=== PATIENT | male | born 1975 ===

== ENCOUNTER → 2017-02-18 | Outpatient (CLI) | payer BC ==
--- NOTE | 2017-02-18 13:01 | DIAGNOSTIC IMAGING REPORT ---
CT HEAD WITHOUT CONTRAST (CT) CLINICAL HISTORY: Persistent headache and blurred vision COMPARISON STUDY: No previous studies for comparison. TECHNIQUE: Axial CT of the brain is performed from the vertex to the skull base. IV contrast was not administered for this examination. CT DOSE: FINDINGS: No intra or extra-axial mass lesions are visualized. There is no CT evidence of acute cortical infarction. There is no evidence of midline shift. There is no acute hemorrhage. No calvarial fractures are visualized. There is no evidence of pathologic ventricular dilatation. There is no evidence of acute sinusitis IMPRESSION: Normal noncontrast head CT. Electronically signed by: Nirmal Heart M.D. 02/18/2017 12:59 PM Dictated Date/Time: 02/18/2017 12:58 PM
== END | disposition home or self-care (01) ==
LOC: C.CTS 12:39
PROVIDERS: ATTEND Family Medicine
DX: R51 Headache (principal)

== ENCOUNTER → 2017-09-19 | Outpatient (CLI) | payer BC ==
--- NOTE | 2017-09-19 15:02 | DIAGNOSTIC IMAGING REPORT ---
SOFT TISS HEAD/NECK-THYROID CLINICAL HISTORY: 42 years-old Male presenting with LUMP ON RT SIDE OF NECK,LT SHOULDER PAIN, lump in the superior mid neck for 4 weeks and posterior lateral neck 4 years. TECHNIQUE: Real-time grayscale and color Doppler ultrasound imaging of the neck was performed. COMPARISON: 04/18/2012. FINDINGS: At the site of clinical interest in the superior neck to the right of midline, a 1.9 x 0.7 x 1.2 cm benign-appearing lymph node is noted. Medial to this a second benign-appearing lymph node noted measuring 1.3 x 1.1 x 1.2 cm. At the second site of clinical interest in the posterior lateral right neck, ill-defined isoechoic 2.2 x 1.2 x 2.5 cm mass noted. This has the same echogenicity as surrounding subcutaneous fat but appears to exert mass effect on the underlying musculature. IMPRESSION: 1. At the site of clinical interest in the superior neck to the right of midline, findings consistent with benign-appearing lymph nodes. 2. At the second site of clinical interest in the posterior lateral right neck, findings suggest lipoma. Electronically signed by: Alan Brar M.D. 09/19/2017 3:00 PM Dictated Date/Time: 09/19/2017 2:57 PM
--- NOTE | 2017-09-19 16:03 | DIAGNOSTIC IMAGING REPORT ---
MRI OF THE LEFT SHOULDER CLINICAL HISTORY: Left shoulder pain. COMPARISON STUDY: No priors. TECHNIQUE: MRI of the left shoulder was performed utilizing various T1 and T2 weighted sequences in the axial, sagittal, coronal planes. IV contrast was not administered for this examination. Note that interpretation is suboptimal without plain film correlate. FINDINGS: Rotator cuff: The supraspinatus and intraspinous tendons are preserved. The teres minor and subscapularis tendons are intact. There is no subacromial or subdeltoid bursal fluid. The acromioclavicular joint is unremarkable. Biceps tendon: The long head of the biceps tendon is normal in signal intensity and located within the bicipital groove. The anchor is maintained. Labrum: Question a small tear of the glenoid labrum. Shoulder joint: There is no joint effusion. The articular cartilage over the glenoid is well maintained. Minimal arthritic changes present in the greater tuberosity of the humeral head. There is no MRI evidence of fracture. Musculature and soft tissues: The musculature of the shoulder is normal in bulk and signal intensity. No atrophy is seen. IMPRESSION: 1. The rotator cuff is intact. 2. The long head of the biceps tendon is preserved. 3. Question a SLAP tear of the labrum Electronically signed by: Homero Simpson M.D. 09/19/2017 4:02 PM Dictated Date/Time: 09/19/2017 3:55 PM
== END | disposition home or self-care (01) ==
LOC: C.ULTRBC 14:10
PROVIDERS: ATTEND Family Medicine
DX: R22.1 Localized swelling, mass and lump, neck (principal); M25.512 Pain in left shoulder

== ENCOUNTER → 2017-12-19 | Day surgery (SDC) | payer BC ==
[2017-11-26 14:16] VITALS: Ht 175.3 cm; Wt 120.5 kg
[~2017-12-19] VITALS: Ht 175.3 cm; Wt 120.5 kg
[~2017-12-19] MED LIST: AMOX875T PO; ATROPINE SULFATE 0.1 MG/ML 5ML SYR IV PRN; BETAMETH SOD PHOS/ACETATE IA 6 MG/ML ONE; BUPIVACAINE 0.25% 30 ML VIAL ONE; BUPIVACAINE 0.5 % 5 MG/1 ML MPF 30ML VIAL ONE; BUPIVACAINE 0.5 % 5 MG/1 ML PF 10ML VIAL ONE; CEFAZOLIN 3000MG IV PUSH 22.5 ML IV SCH; CYM/30 PO; DEXAMETHASONE SOD INJ 4 MG/ML VIAL ONE; ESOM20CA PO; EpHEDrine SULFATE INJ 50 MG/ML AMP IV PRN; EpINEphrine INJ 1MG/ML AMP 1 MG/ML AMP ONE; FENTANYL CITRATE INJ 50 MCG/1 ML 2 ML VIAL IV PRN; FENTANYL CITRATE INJ 50 MCG/1 ML 2 ML VIAL ONE; FLUMAZENIL 0.1 MG/1 ML 10 ML VIAL IV ONE; HydrALAZINE HCL 20 MG/ML VIAL ONE; KETO10TA PO; KETOROLAC TROMETHAMINE 30 MG/ML VIAL IV. PRN; LABETALOL HCL IV 5 MG/ML 20ML IV ONE; LACTATED RINGER'S 1000ML 1,000 ML IV SCH; LIDOCAINE HCL 2% 2 ML VIAL (20MG/ML) ONE; MIDAZOLAM HCL 1 MG/ML 2ML VIAL ONE; MONT1TAB3 PO; NXM/40 PO; ONDANSETRON INJ 2 MG/ML 2 ML VIAL IV PRN; ONDANSETRON INJ 2 MG/ML 2 ML VIAL ONE; OXYC-57 PO; OXYCODONE/ACETAMINOPHEN 5-325 TAB ONE; OXYCODONE/ACETAMINOPHEN 5-325 TAB PO PRN; PROMETHAZINE HCL INJ 6.25 MG in SODIUM CHLORIDE 0.9% 50ML 50 ML IV PRN; PROPOFOL IV EMULSION 10 MG/ML 20 ML VIAL IV ONE; SODIUM CHLORIDE 0.9% 1000ML 1,000 ML IV SCH
--- NOTE | 2017-12-19 08:10 | History & Physical Bridge - SC ---
H&P Re-Evaluation Bridge Note: I have examined the patient, reviewed the History & Physical and in the interval since the performance of the History & Physical I have noted the following changes of clinical significance: Added Left Lateral Epicondyle Injection to the consent
--- NOTE | 2017-12-19 09:27 | [facility] Post Operative Brief Note ---
Immediate Operative Summary Operative Date Dec 19, 2017. Pre-Operative Diagnosis Impingement sydrome left shoulder Post-Operative Diagnosis same Procedure(s) Performed Left Shoulder Arthroscopy With Subacromial Decompression Surgeon Dr. Pozo [employer] Surgeon(s) Avi Odonnell PA-C Estimated Blood Loss 5cc Findings Consistent with Post-Op Diagnosis Specimens none Anesthesia Type MAC Regional Complication(s) none Disposition Disposition: Recovery Room / PACU
--- NOTE | 2017-12-19 09:34 | Discharge Instructions-SurgCtr ---
Discharge Instructions Date of Service Dec 19, 2017. Visit Reason for Visit: Impingement Syndrome Of Shoulder Region Discharge Discharge Diagnosis / Problem: SAME ABOVE Discharge Goals Goal(s): Decrease discomfort, Improve function Activity Recommendations Activity Limitations: as noted below Lifting Limitations: gradually increase as tolerated Exercise/Sports Limitations: gradually increase as tolerated Shower/Bathe: tomorrow Anesthesia . Post Anesthesia Instructions: If you have had General Anesthesia or IV Sedation: * Do not drive today. * Resume driving when surgeon permits. * Do not make important decisions or sign legal documents today. * Call surgeon for: 1. Temperature elevations greater than 101 degrees F. 2. Uncontrollable pain. 3. Excessive bleeding. 4. Persistent nausea and vomiting. 5. Medication intolerance (nausea, vomiting or rash). * For nausea and vomiting use only clear liquids such as: tea, soda, bouillon until nausea subsides, then gradually increase diet as tolerated. * If you have any concerns or questions, call your surgeon's office. If physician is unavailable and it is an emergency, call 911 or go to the nearest emergency room. . Instructions / Follow-Up Instructions / Follow-Up MEDICATIONS: * Resume previous medications unless instructed otherwise by your surgeon. * Always take pain medication on a full stomach or with food to avoid upset stomach. * Do not drink alcohol or drive while taking narcotics. * Ibuprofen or Tylenol may be taken if narcotic not needed. SPECIAL CARE INSTRUCTIONS: __ None _X_ Keep extremity elevated and iced x 48 hours; apply ice 20-30 minutes 8-10 times/day. May remove at night. _X_ Sling (*WEAR NEEDED FOR COMFORT) __24 hrs/day __ Remove at night __ Shoulder Immobilizer __ 24 hrs/day __ Remove at night _X_ Dressing __ Maintain until seen in office, may shower with plastic over site _X_ Remove dressings in 24-48 hours and then may shower _X_ Cover incisions with band-aids after showering __ Do not remove steri-strips Call physician if chills or temperature rises above 102 degrees or pain unrelieved by prescribed pain medications at . . Diet Recommendations Home Diet: no limitations Fluid Restriction: None Procedures Procedures Performed: Left Shoulder Arthroscopy, Acromioplasty, Debridement, and Distal Clavicle Resection. Injection Left Lateral Epicondyle Pending Studies Studies pending at discharge: no Work Instructions Return To Work: after follow-up Medical Emergencies . Who to Call and When: Medical Emergencies: If at any time you feel your situation is an emergency, please call 911 immediately. . Non-Emergent Contact Non-Emergency issues call your: Primary Care Provider Call Non-Emergent contact if: you have a fever, temperature is above 101.5 . . "Provider Documentation" section prepared by Torin Odonnell. .
[2017-12-19 09:35] VITALS: TEMP 36.2
--- NOTE | 2017-12-19 10:18 | Anesthesia Progress Nt - [facility] ---
Anesthesia Post Op Note Date & Time Dec 19, 2017 at 10:17 Vital Signs Pain Intensity: 4.0 Vital Signs Past 12 Hours Date Time Temp Pulse Resp B/P (MAP) Pulse Ox O2 Delivery O2 Flow Rate FiO2 12/19/17 09:35 36.2 66 16 99/61 (74) 99 Room Air 12/19/17 08:31 148/98 12/19/17 08:29 69 12/19/17 08:29 67 97 12/19/17 08:26 158/113 12/19/17 08:24 66 12/19/17 08:24 67 152/98 96 12/19/17 07:35 36.5 69 18 157/107 (124) 95 Room Air Notes Mental Status: alert / awake / arousable, participated in evaluation Pt Amnestic to Procedure: Yes Nausea / Vomiting: adequately controlled Pain: adequately controlled Airway Patency, RR, SpO2: stable & adequate BP & HR: stable & adequate Hydration State: stable & adequate Anesthetic Complications: no major complications apparent Block working well in pacu
[2017-12-19 11:04] VITALS: BP 104/62; PULSE 63; O2SAT 95
--- NOTE | 2017-12-19 14:16 | OPERATIVE REPORT ---
DATE OF OPERATION: 12/19/2017 PREOPERATIVE DIAGNOSIS: Severe external impingement of the left shoulder. POSTOPERATIVE DIAGNOSIS: Same. PROCEDURE: Left shoulder diagnostic arthroscopy with limited debridement, acromioplasty, and distal clavicle resection to include co-planing the undersurface of the clavicle. SURGEON: Dr. Heriberto Pozo. HOOP COILER: Avi Odonnell PA-C, whose assistance was necessary for positioning the arm and help with instrumentation. ANESTHESIA: Sedation with a left interscalene nerve block. COMPLICATIONS: None. CONDITION: Stable to PACU. INDICATIONS: Baldo is a pleasant 42-year-old male who has been having a 6-month history of left shoulder pain. He denies any trauma. MRI and clinical examination were diagnostic for severe external impingement. After failing conservative treatment, he elected to undergo arthroscopy. DESCRIPTION OF PROCEDURE: On 12/19/2017, he arrived at [facility] for the above procedure. He was seen in the preoperative holding and the operative extremity was identified and signed. He was given a preoperative antibiotic and a left interscalene nerve block. He was taken back to the operating room, laid on the table in supine position and put under basic sedation. The left shoulder was prepped and draped in sterile fashion. Time-out was done and the patient's operative extremity was properly identified. A scope was introduced into the posterior portal. Diagnostic arthroscopy showed no cartilage damage to the humeral head or the glenoid. There was some fraying in the superior and anterior labrum. Some of the frayed labrum was incarcerated in the joint. The biceps tendon was intact and went through a normal size biceps karan mechanism. The supraspinatus, infraspinatus, teres minor and subscapularis were all checked and intact. An anterior portal was made. A shaver was used to do a limited debridement of the intraarticular structures and to bring the labrum back to stable margins. The scope was then put into the subacromial space. A lateral portal was made. A shaver was used to do a complete subacromial and subdeltoid bursectomy. An ablator was used to tease the coracoacromial ligament off the undersurface of the acromion and a 5-0 celsa was used to complete an acromioplasty of a Bigliani type 3 acromion. A shaver was used to remove any excess debris and the bursal side of the rotator cuff was examined extensively without evidence of tear. Attention was turned to the distal clavicle. There was large inferior osteophytes off the distal clavicle that were impinging upon the supraspinatus outlet. A 5-0 celsa was used to co-plane the undersurface of the clavicle. This opened up the supraspinatus outlet. Multiple pictures were taken. Arthroscopic instruments were removed from the shoulder. Portal sites were closed with 3-0 nylon. He was then placed in a soft dressing and a regular arm sling. He was then extubated, transferred to a [facility] and taken to the postanesthesia care in stable condition. He tolerated the procedure well. I attest to the content of the Intraoperative Record and any orders documented therein. Any exception s are noted below.
--- NOTE | 2017-12-19 14:37 | OPERATIVE REPORT ---
DATE OF OPERATION: 12/19/2017 ADDENDUM He also had a lateral epicondyle injection at the end of this procedure. We discussed this before the case and updated the consent. After the procedure was done, his lateral epicondyle was injected with 1 mL of Marcaine and 1 mL of Celestone. A Band-Aid was placed. I attest to the content of the Intraoperative Record and any orders documented therein. Any exception s are noted below.
== END | disposition home or self-care (01) ==
LOC: X.SURG 07:21
PROVIDERS: ATTEND Orthopaedic Surgery
DX: M75.42 Impingement syndrome of left shoulder (principal); F32.9 Major depressive disorder, single episode, unspecified; E66.9 Obesity, unspecified; Z87.891 Personal history of nicotine dependence; Z79.899 Other long term (current) drug therapy; Z98.818 Other dental procedure status; Z82.49 Family history of ischemic heart disease and other diseases of the circulatory system; Z82.3 Family history of stroke; Z83.3 Family history of diabetes mellitus

== ENCOUNTER 2017-12-20 12:36 | Emergency (ER) | payer BC ==
[~2017-12-20] VITALS: Ht 175.3 cm; Wt 132.1 kg
[~2017-12-20 12:36] MED LIST changes: -AMOX875T PO; -ATROPINE SULFATE 0.1 MG/ML 5ML SYR IV PRN; -BETAMETH SOD PHOS/ACETATE IA 6 MG/ML ONE; -BUPIVACAINE 0.25% 30 ML VIAL ONE; -BUPIVACAINE 0.5 % 5 MG/1 ML MPF 30ML VIAL ONE; -BUPIVACAINE 0.5 % 5 MG/1 ML PF 10ML VIAL ONE; -CEFAZOLIN 3000MG IV PUSH 22.5 ML IV SCH; -DEXAMETHASONE SOD INJ 4 MG/ML VIAL ONE; -ESOM20CA PO; -EpHEDrine SULFATE INJ 50 MG/ML AMP IV PRN; -EpINEphrine INJ 1MG/ML AMP 1 MG/ML AMP ONE; -FENTANYL CITRATE INJ 50 MCG/1 ML 2 ML VIAL IV PRN; -FENTANYL CITRATE INJ 50 MCG/1 ML 2 ML VIAL ONE; -FLUMAZENIL 0.1 MG/1 ML 10 ML VIAL IV ONE; -HydrALAZINE HCL 20 MG/ML VIAL ONE; -KETOROLAC TROMETHAMINE 30 MG/ML VIAL IV. PRN; -LABETALOL HCL IV 5 MG/ML 20ML IV ONE; -LACTATED RINGER'S 1000ML 1,000 ML IV SCH; -LIDOCAINE HCL 2% 2 ML VIAL (20MG/ML) ONE; -MIDAZOLAM HCL 1 MG/ML 2ML VIAL ONE; -ONDANSETRON INJ 2 MG/ML 2 ML VIAL IV PRN; -ONDANSETRON INJ 2 MG/ML 2 ML VIAL ONE; -OXYCODONE/ACETAMINOPHEN 5-325 TAB ONE; -OXYCODONE/ACETAMINOPHEN 5-325 TAB PO PRN; -PROMETHAZINE HCL INJ 6.25 MG in SODIUM CHLORIDE 0.9% 50ML 50 ML IV PRN; -PROPOFOL IV EMULSION 10 MG/ML 20 ML VIAL IV ONE; -SODIUM CHLORIDE 0.9% 1000ML 1,000 ML IV SCH
[2017-12-20 12:39] VITALS: TEMP 36.4; Ht 175.3 cm; Wt 132.1 kg
[2017-12-20 12:56] VITALS: O2SAT 96
--- NOTE | 2017-12-20 13:10 | EMERGENCY ROOM VISIT NOTE ---
History First contact with patient: 12:53 Chief Complaint: SHORTNESS OF BREATH Stated Complaint: SOB, FOLLOWING SHOULDER SURG Nursing Triage Summary: pt arrives reporting left shoulder surgery yesterday by MD Pozo reports late in the night after surgery SOB and dyspnea pt arrives appearing in discomfort shoulder is in sling, taken out and repositioned pt reports no current ROM activity pt reports pain with deep inspiration History of Present Illness The patient is a 42 year old male who presents to the Emergency Room with complaints of shortness of breath since last night. The patient underwent left shoulder surgery yesterday with Dr. Pozo. He did not undergo general anesthesia. A nerve block was performed. The patient did not notice his breathing was difficult until he went home. He denies any cough. No chest pain or pressure. He denies any history of cardiac disease. He has not been using an incentive spirometer. Review of Systems 10 system review performed and negative unless noted in HPI or below Past Medical/Surgical History Otherwise healthy Social History Smoking Status: Former Smoker Marital Status: Current/Historical Medications Scheduled Amoxicillin & Pot Clavulanate (Augmentin 875-125 mg), 1 TAB PO BID Duloxetine HCl (Cymbalta), 1 CAP PO DAILY Esomeprazole Magnesium (Nexium), 20 MG PO DAILY Montelukast Sodium (Singulair), 10 MG PO HS Scheduled PRN Ketorolac Tromethamine (Toradol), 10 MG PO Q8 PRN for Pain Oxycodone/Acetaminophen 5MG/325MG (Percocet 5MG/325MG), 1-2 TABLETS PO Q6 PRN for Pain Physical Exam Vital Signs Date Time Temp Pulse Resp B/P (MAP) Pulse Ox O2 Delivery O2 Flow Rate FiO2 12/20/17 15:59 67 20 141/92 94 Room Air 12/20/17 15:19 57 18 136/90 95 Room Air 12/20/17 13:50 84 16 166/102 94 Room Air 12/20/17 13:07 66 12/20/17 12:56 96 Room Air 12/20/17 12:49 98 Room Air 12/20/17 12:39 36.4 69 18 164/106 95 Room Air Physical Exam VITALS: Vitals are noted on the nurse's note and reviewed by myself. Vital signs stable. GENERAL: 42-year-old male, in no acute distress, nondiaphoretic, well-developed well-nourished. SKIN: Incisions in the left shoulder are intact. No surrounding erythema. No bruising. HEAD: Normocephalic atraumatic. NECK: Supple without nuchal rigidity. No lymphadenopathy. Cervical spine is nontender. No JVD. HEART: Regular rate and rhythm without murmurs gallops or rubs. LUNGS: Clear to auscultation bilaterally without wheezes, rales or rhonchi. No accessory muscle use. ABDOMEN: Positive bowel sounds x 4.Soft, nontender, without organomegaly. No guarding or rebound tenderness. MUSCULOSKELETAL: No muscle atrophy, erythema, or edema noted. Strength 5/5 throughout. NEURO: Patient was alert and oriented to person place and time. Normal sensation to touch. No focal neurological deficits. Medical Decision & Procedures ER Provider Diagnostic Interpretation: CTA chest IMPRESSION: 1. No evidence for pulmonary embolus. 2. Parenchymal infiltrate left lung base with associated areas of round atelectasis and peripheral subsegmental consolidation. The above report was generated using voice recognition software. It may contain grammatical, syntax or spelling errors. Electronically signed by: Judd Ricketts M.D. 12/20/2017 3:15 PM Dictated Date/Time: 12/20/2017 3:10 PM The status of this report is Signed. Draft = Not yet reviewed or approved by Radiologist. Signed = Reviewed and approved by Radiologist. <AttendingPhy></AttendingPhy> <FamilyPhy>Heriberto Mckinnon, DO</FamilyPhy> < PrimaryPhy>Heriberto Mckinnon, DO</PrimaryPhy> <UnitNumber>[id number]</ UnitNumber> <VisitNumber>[id number]</VisitNumber> <PatientName>NY LOPEZ </PatientName> <DateOfBirth>1975</DateOfBirth> <Location[facility]</Location> <ServiceDate>12/20/17</ServiceDate> <MNE>ESINDI</MNE> <OrderingPhy>Arianne Pinedo PA-C</OrderingPhy> <OrderingPhyMNE>f rep ord dr gudino</OrderingPhyMNE> < DictatingPhyMNE>f rep dict dr mne</DictatingPhyMNE> <CCListMNE>f rep ct mne</ CCListMNE> <AdmittingPhyMNE>f pt admit dr gudino</AdmittingPhyMNE Laboratory Results 12/20/17 12:50 Red Blood Count 4.72, Mean Corpuscular Volume 91.3, Mean Corpuscular Hemoglobin 31.6, Mean Corpuscular Hemoglobin Concent 34.6, Mean Platelet Volume 11.3, Neutrophils (%) (Auto) 75.7, Lymphocytes (%) (Auto) 14.2, Monocytes (%) (Auto) 9.4, Eosinophils (%) (Auto) 0.0, Basophils (%) (Auto) 0.1, Neutrophils # (Auto) 14.23, Lymphocytes # (Auto) 2.67, Monocytes # (Auto) 1.76, Eosinophils # (Auto) 0.00, Basophils # (Auto) 0.01 12/20/17 12:50 Test 12/20/17 12:50 White Blood Count 18.78 K/uL (4.8-10.8) Red Blood Count 4.72 M/uL (4.7-6.1) Hemoglobin 14.9 g/dL (14.0-18.0) Hematocrit 43.1 % (42-52) Mean Corpuscular Volume 91.3 fL (80-100) Mean Corpuscular Hemoglobin 31.6 pg (25-34) Mean Corpuscular Hemoglobin Concent 34.6 g/dl (32-36) Platelet Count 249 K/uL (130-400) Mean Platelet Volume 11.3 fL (7.4-10.4) Neutrophils (%) (Auto) 75.7 % Lymphocytes (%) (Auto) 14.2 % Monocytes (%) (Auto) 9.4 % Eosinophils (%) (Auto) 0.0 % Basophils (%) (Auto) 0.1 % Neutrophils # (Auto) 14.23 K/uL (1.4-6.5) Lymphocytes # (Auto) 2.67 K/uL (1.2-3.4) Monocytes # (Auto) 1.76 K/uL (0.11-0.59) Eosinophils # (Auto) 0.00 K/uL (0-0.5) Basophils # (Auto) 0.01 K/uL (0-0.2) RDW Standard Deviation 44.3 fL (36.4-46.3) RDW Coefficient of Variation 13.3 % (11.5-14.5) Immature Granulocyte % (Auto) 0.6 % Immature Granulocyte # (Auto) 0.11 K/uL (0.00-0.02) Anion Gap 9.0 mmol/L (3-11) Est Creatinine Clear Calc Drug Dose 163.8 ml/min Estimated GFR () 128.6 Estimated GFR (Non- 111.0 BUN/Creatinine Ratio 15.0 (10-20) Calcium Level 9.4 mg/dl (8.5-10.1) Troponin I 0.020 ng/ml (0-0.045) Medications Administered Medications (Trade) Dose Ordered Sig/Albin Route Start Time Stop Time Status Last Admin Dose Admin Diphenhydramine HCl (Benadryl Inj) 50 mg STK-MED ONCE .ROUTE 12/20/17 13:43 12/20/17 13:44 DC 12/20/17 13:47 50 MG Ranitidine HCl (zANTac IV) 50 mg NOW STAT IV 12/20/17 13:50 12/20/17 13:52 DC 12/20/17 13:50 50 MG Dexamethasone Sodium Phosphate (Decadron Inj) 10 mg NOW STAT IV 12/20/17 14:05 12/20/17 14:06 DC 12/20/17 14:12 10 MG Amoxicillin/ Clavulanate Potassium (Augmentin Tab) 875 mg NOW ONCE PO 12/20/17 15:45 12/20/17 15:46 DC 12/20/17 16:20 875 MG Albuterol (Ventolin Hfa Inhaler) 2 puffs NOW ONCE INH 12/20/17 15:45 12/20/17 15:46 DC 12/20/17 16:20 2 PUFFS ED Course Patient was seen and examined Vital signs including blood pressure were reviewed medications list was verified with patient Labs were obtained, and a saline lock was established I was notified by the RN that the patient is complaining of itching. The patient's also noted some redness of his ears and neck. The patient was reevaluated. Mild erythema noted of the ears and neck bilaterally. The patient was given 1 dose of Benadryl 50 mg IV, Decadron 10 mg IV and ranitidine 50 mg IV. He was observed. His symptoms greatly improved. Imaging was performed and reviewed. I reassessed the patient. He was resting comfortably. He denied any itching, shortness of breath or difficulty swallowing. We thoroughly reviewed his results. He voiced understanding, and was comfortable being discharged home. The patient was given 1 dose of Augmentin. He was also given an albuterol inhaler and incentive spirometer. I reviewed discharge instructions the patient. They voiced understanding and had no further questions. Medical Decision Differential diagnosis: Atelectasis, pneumonia, pulmonary embolus, allergic reaction, angioedema This patient is a 42-year-old male presents to the emergency department with a main complaint of shortness of breath postop day #1 from shoulder surgery. On exam, there is no significant wheezing. Airway was patent. His labs revealed leukocytosis at 18,000. I was also concerned about a pulmonary embolus given his recent surgery. A CTA was performed. This shows an infiltrate at the left base. Given his recent surgery/sedation, I opted to cover the patient for aspiration pneumonia. He was started on a course of Augmentin. He was also given an albuterol inhaler. He is not hypoxic. Regarding a possible allergic reaction, the patient had some erythema of his ears. I do not appreciate a significant rash. He had no stridor or wheezing on exam. The patient was treated with Benadryl,'s Decadron and ranitidine. He had no further symptoms of an allergic reaction. I believe he is stable to be discharged home with close follow-up. The patient and the patient's family are comfortable with this plan. They'll follow up with the memory care physician on Saturday. They agree to return to the emergency department with any new or concerning symptoms over the weekend This chart was completed in part utilizing [employer] Speech Voice Recognition software. Attempts were made to minimize the grammatical errors, random word insertions, pronoun errors and incomplete sentences. Any formal questions or concerns about the content, text or information contained within the body of this dictation should be directly addressed to the provider for clarification. Medication Reconcilliation Current Medication List: was personally reviewed by me Blood Pressure Screening Patient's blood pressure: Elevated blood pressure Impression Primary Impression: Pneumonia Departure Information Dispostion Home / Self-Care Condition GOOD Prescriptions Amoxicillin & Pot Clavulanate (Augmentin 875-125 mg) 1 Tab Tab 1 TAB PO BID for 10 Days, #20 TAB Prov: Arianne Pinedo PA-C 12/20/17 Referrals Heriberto Mckinnon DO (PCP) Patient Instructions ED Pneumonia Adult, My [facility] Additional Instructions You have been evaluated in the emergency department for shortness of breath after surgery. A CAT scan shows pneumonia on the left side. Please do incentive spirometer 6-8 times every hour over the next 5 days while awake Please take the entire course of antibiotics. Please either eat yogurt daily or take a probiotic with this medication. Please use albuterol inhaler 2 puffs every 4 hours as needed for difficulty breathing Please follow-up as soon as possible with your primary care physician for a recheck Watch for further signs of allergic reaction such as difficulty swallowing, swelling of the face, lips, tongue, worsening breathing or rash Please do not hesitate to return to the emergency department with any new, worsening or concerning symptoms It was a pleasure participating in your care today
[2017-12-20] MEDS ORDERED: CYM/30 PO (13:34)
[2017-12-20] MEDS ORDERED: ESOM20CA PO (13:34)
[2017-12-20] MEDS ORDERED: DiphenhydrAMINE HCL 50 MG/ML VIAL ONE (13:43)
[2017-12-20] MEDS ORDERED: METHYLPREDNISOLONE 125 MG VIAL IV STA (13:50)
[2017-12-20] MEDS ORDERED: RANITIDINE HCL 50 MG/100 ML D5W IV STA (13:50)
[2017-12-20 14:00] LABS: BASO % 0.1 %; BASO ABS # 0.01 K/uL (0-0.2); HEMATOCRIT 43.1 % (42-52); HEMOGLOBIN 14.9 g/dL (14.0-18.0); IG# 0.11 K/uL (0.00-0.02); LYMPH % 14.2 %; LYMPH ABS # 2.67 K/uL (1.2-3.4); MEAN CELL VOLUME 91.3 fL (80-100); MEAN CORPUSCULAR HEMOGLOBIN 31.6 pg (25-34); MEAN CORPUSCULAR HGB CONC 34.6 g/dl (32-36); MEAN PLATELET VOLUME 11.3 fL (7.4-10.4); MONO % 9.4 %; MONO ABS # 1.76 K/uL (0.11-0.59); NEUT % 75.7 %; NEUT ABS # 14.23 K/uL (1.4-6.5); PLATELET COUNT 249 K/uL (130-400); RED CELL DISTRIBUTION WIDTH CV 13.3 % (11.5-14.5); RED CELL DISTRIBUTION WIDTH SD 44.3 fL (36.4-46.3); WHITE BLOOD COUNT 18.78 K/uL (4.8-10.8)
[2017-12-20] MEDS ORDERED: DEXAMETHASONE SOD INJ 4 MG/ML VIAL IV STA (14:05)
[2017-12-20 14:10] LABS: CALCIUM 9.4 mg/dl (8.5-10.1); CREATININE 0.8 mg/dl (0.60-1.40); POTASSIUM 3.8 mmol/L (3.5-5.1)
--- NOTE | 2017-12-20 15:16 | DIAGNOSTIC IMAGING REPORT ---
(CHEST FOR PE) ANGIO WITH CT DOSE: 739.82 mGy.cm HISTORY: Chest pain dyspnea TECHNIQUE: Multiaxial CT images of the chest were performed following the intravenous administration of contrast to evaluate the pulmonary arteries. Maximal intensity projection images were also obtained. A dose lowering technique was utilized adhering to the principles of ALARA. COMPARISON STUDY: None. FINDINGS: Thoracic aorta is normal in course and caliber. No evidence for aneurysm or dissection. Pulmonary arterial vasculature is normal within limitations of moderate respiratory motion. No major filling defect is appreciated. There are findings of a parenchymal infiltrate left lung base with superimposed atelectatic and subsegmental consolidative change. The lungs otherwise appear clear. IMPRESSION: 1. No evidence for pulmonary embolus. 2. Parenchymal infiltrate left lung base with associated areas of round atelectasis and peripheral subsegmental consolidation. The above report was generated using voice recognition software. It may contain grammatical, syntax or spelling errors. Electronically signed by: Judd Ricketts M.D. 12/20/2017 3:15 PM Dictated Date/Time: 12/20/2017 3:10 PM
[2017-12-20] MEDS ORDERED: AMOXICILLIN/CLAVULANATE TAB 875 MG TAB PO ONE (15:45)
[2017-12-20] MEDS ORDERED: ALBUTEROL HFA 8 GM INHALER INH ONE (15:45)
[2017-12-20] MEDS ORDERED: AMOX875T PO (15:48)
[2017-12-20 15:59] VITALS: BP 141/92; PULSE 67; O2SAT 94
== END 2017-12-20 16:20 | disposition home or self-care (01) ==
LOC: C.EDB 12:37
DX: J18.9 Pneumonia, unspecified organism (principal); Z98.890 Other specified postprocedural states; Z87.891 Personal history of nicotine dependence; Z79.899 Other long term (current) drug therapy

== ENCOUNTER → 2018-02-04 | Outpatient (CLI) | payer BC ==
[~2018-02-04] MED LIST changes: +ESOM20CA PO; -NXM/40 PO
--- NOTE | 2018-02-04 10:22 | DIAGNOSTIC IMAGING REPORT ---
CHEST 2 VIEWS ROUTINE HISTORY: Hypertension. COMPARISON: Chest CTA 12/20/2017. Chest x-ray 04/12/2014. FINDINGS: No pleural effusions. No pneumothorax. The heart is normal in size. Old compression deformity at T11, unchanged. The lungs are clear. Hazy appearance to the lingula consistent with prominent mediastinal fat. This remains unchanged. IMPRESSION: No significant change compared to the prior study. No acute process. Electronically signed by: Lamont Alva M.D. 02/04/2018 10:21 AM Dictated Date/Time: 02/04/2018 10:19 AM
--- NOTE | 2018-02-04 22:04 | Exercise Stress Test Report ---
Exercise Stress Test Report Exercise Stress Test Report Date of Service: 02/04/2018 Exercise Stress Test Report Procedure: Exercise treadmill stress ECG Ordering physician: Dr. Mckinnon Indications: 1. Hypertension 2. Diaphoresis Procedural details: Resting ECG demonstrated sinus bradycardia at 59 bpm. Resting blood pressure was 132/106mmHg. Patient exercised for a total of 7 minutes and 56 seconds via standard Narciso protocol, terminating exercise in the third stage due to fatigue. There was no reported chest pain. Maximum blood pressure was 209/ 90mmHg. Peak heart rate was 160 bpm, representing 89% MPHR. Patient achieved 9.9 METS. Exercise ECG demonstrated no significant ST changes. There was no arrhythmia. Impression: 1. Negative exercise ECG for ischemia at 89% MPHR. 2. Hypertensive response to exercise. 3. No arrhythmia. 4. No reported chest pain. 5. Fair exercise tolerance.
== END | disposition home or self-care (01) ==
LOC: C.CPL 08:50
PROVIDERS: ATTEND Family Medicine
DX: L74.9 Eccrine sweat disorder, unspecified (principal); I10 Essential (primary) hypertension